=== PATIENT | female | born 1940 | race American Indian/Alaskan Native ===

== ENCOUNTER 2016-06-05 23:05 | Emergency (ER) | payer MEDICARE | END 2016-06-05 23:30 | disposition left against medical advice (07) | LOC: ED 23:05 | DX: R03.0 Elevated blood-pressure reading, without diagnosis of hypertension (principal); Z53.21 Procedure and treatment not carried out due to patient leaving prior to being seen by health care provider ==

== ENCOUNTER 2016-07-06 11:47 | Observation (INO) | payer MEDICARE ==
[2016-07-06 12:43] LABS: Basophils % (Auto) 0.6 % (0.0-1.8); Eosinophils % (Auto) 2.7 % (0.0-4.3); Hematocrit 31.5 % (30.3-42.9); Hemoglobin 10.1 gm/dl (10.1-14.3); Mean Corpuscular HGB Conc 32 % (30-34); Mean Corpuscular Hemoglobin 30 pg (28-32); Mean Corpuscular Volume 92 fl (79-97); Platelet Count 146 K/mm3 (140-440); Red Blood Count 3.43 M/mm3 (3.65-5.03); Red Cell Distribution Width 15.3 % (13.2-15.2); White Blood Count 4.5 K/mm3 (4.5-11.0)
[2016-07-06 12:58] LABS: Creatine Kinase MB 1.7 ng/mL (0.0-4.0)
[2016-07-06 12:59] LABS: Magnesium 1.9 mg/dL (1.7-2.3)
[2016-07-06 13:08] LABS: BUN/Creatinine Ratio 21.11; Blood Urea Nitrogen 19 mg/dL (7-17); Calcium 9.3 mg/dL (8.4-10.2); Carbon Dioxide 26 mmol/L (22-30); Glucose 124 mg/dL (65-100)
[2016-07-06 13:09] LABS: Anion Gap 18 mmol/L; Chloride 102.5 mmol/L (98-107); Potassium 4.5 mmol/L (3.6-5.0); Sodium 142 mmol/L (137-145)
--- NOTE | 2016-07-06 13:27 | Emergency Department Report ---
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 Patient describes associated lightheadedness with no reported pain, nausea, vomiting, diaphoresis, melena, hematochezia, or diarrhea. After reviewing medications with family it appears that patient took a double dose of her Cardura 4 mg since she had 2 different looking Cardura pills in 2 separate bottles. Patient was also started on Zanaflex 4 mg for her ongoing back pain in which she took the first dose this morning. Patient complains generalized weakness and feeling hungry. - Related Data Home Medications Medication Instructions Recorded Confirmed Last Taken Atenolol [Tenormin] 2 tab PO DAILY 05/17/15 02/22/16 02/22/16 Losartan/Hydrochlorothiazide 1 each PO DAILY 02/22/16 02/22/16 02/22/16 [Losartan-Hctz 100-25 mg Tab] Previous Rx's Medication Instructions Recorded Last Taken Type Aspirin EC [Aspirin Enteric Coated 81 mg PO QDAY #30 tablet. 05/29/15 Rx TAB] amLODIPine [Norvasc] 5 mg PO DAILY #30 tab 02/22/16 Unknown Rx Allergies Allergy/AdvReac Type Severity Reaction Status Date / Time No Known Allergies Allergy Verified 02/08/16 12:08 ED Review of Systems ROS: Stated complaint: GENERAL WEAKNESS Other details as noted in HPI Comment: All other systems reviewed and negative Other: Constitutional: No fevers chills Eyes: No eye pain visual changes ENT: No ear pain or throat pain Neck: Denies pain Respiratory: Denies cough wheezing shortness of breath Cardiovascular: Denies chest pain, palpitations GI: Denies abdominal pain, nausea, vomiting, diarrhea : Denies dysuria Musculoskeletal: Denies back pain Skin: Denies rash, lesions, erythema Neurologic: Denies headache, numbness Psychiatric: Denies suicidal ideation, hallucinations ED Past Medical Hx - Past Medical History Previous Medical History?: Yes Hx Hypertension: Yes Hx CVA: Yes (APR 2015) Hx Heart Attack/AMI: No (father of heart attack 56 y/o) Hx Diabetes: Yes (NIDDM) Hx HIV: No - Surgical History Past Surgical History?: Yes Additional Surgical History: tonsilectomy - Social History Smoking Status: Never Smoker Substance Use Type: Alcohol - Medications Home Medications: Home Medications Medication Instructions Recorded Confirmed Last Taken Type Atenolol [Tenormin] 2 tab PO DAILY 05/17/15 02/22/16 02/22/16 History Aspirin EC [Aspirin Enteric Coated 81 mg PO QDAY #30 tablet. 05/29/1502/22/16 Rx TAB] Losartan/Hydrochlorothiazide 1 each PO DAILY 02/22/16 02/22/16 02/22/16 History [Losartan-Hctz 100-25 mg Tab] amLODIPine [Norvasc] 5 mg PO DAILY #30 tab 02/22/16 Unknown Rx ED Physical Exam - General Limitations: No Limitations - Other Other exam information: General: No limitations, patient is alert in no acute distress Head exam: Atraumatic, normocephalic Eyes exam: Normal appearance, pupils equal reactive to light, extraocular movements intact ENT: Moist mucous membrane, normal oropharynx Neck exam: Normal inspection, full range of motion, no meningismus nontender Respiratory exam: Clear to auscultation bilateral, no wheezes, rales, crackles Cardiovascular: Normal rate and rhythm, normal heart sounds Abdomen: Soft, nondistended, and nontender, with normal bowel sounds, no rebound, or guarding Extremity: Full range of motion, left ankle edema which is chronic as per patient with history of surgery to the ankle Back: Normal Inspection, full range of motion, no tenderness Neurologic: Alert, oriented x3, cranial nerves intact, no motor or sensory deficit, xjldtz-mzhy-cfohsu function intact Psychiatric: normal affect, normal mood Skin: Warm, dry, intact - Assessment Assessment Interval: Baseline - Level of Consciousness 1a. Level of Consciousness: alert - LOC Questions 1b. LOC Questions: answers correctly - LOC Command 1c. LOC Commands: performs tasks correctly - Best Gaze 2. Best Gaze: normal - Visual 3. Visual: no visual loss - Facial Palsy 4. Facial Palsy: normal symmetrical movement - Motor Arm 5b. Motor Arm Right: no drift 5a. Motor Arm Left: no drift - Motor Leg 6a. Motor Leg Left: no drift 6b. Motor Leg Right: no drift - Limb Ataxia 7. Limb Ataxia: absent - Sensory 8. Sensory: normal - Best Language 9. Best Language: no aphasia - Dysarthria 10. Dysarthria: normal - Extinction and Inattention 11. Extinction/Inattention: no abnormality - Scoring Total Score: 0 Stroke Severity: No Stroke Symptoms ED Course Vital Signs 07/06/16 12:08 Temperature 97.9 F Pulse Rate 50 L Blood Pressure 155/79 O2 Sat by Pulse 99 Oximetry - Reevaluation(s) Reevaluation #1: 07/06/16 14:00 pt being monitored. steady gait in ED. ED Medical Decision Making - Lab Data Result diagrams: 07/06/16 12:24 07/06/16 12:24 Lab Results 07/06/16 07/06/16 07/06/16 Range/Units 12:24 12:24 12:35 WBC 4.5 (4.5-11.0) K/mm3 RBC 3.43 L (3.65-5.03) M/mm3 Hgb 10.1 (10.1-14.3) gm/dl Hct 31.5 (30.3-42.9) % MCV 92 (79-97) fl MCH 30 (28-32) pg MCHC 32 (30-34) % RDW 15.3 H (13.2-15.2) % Plt Count 146 (140-440) K/mm3 Lymph % (Auto) 25.3 (13.4-35.0) % [place] % (Auto) 10.4 H (0.0-7.3) % Eos % (Auto) 2.7 (0.0-4.3) % Baso % (Auto) 0.6 (0.0-1.8) % Lymph # 1.1 L (1.2-5.4) K/mm3 [place]oup # 0.5 (0.0-0.8) K/mm3 Eos # 0.1 (0.0-0.4) K/mm3 Baso # 0.0 (0.0-0.1) K/mm3 Seg Neutrophils % 61.0 (40.0-70.0) % Seg Neutrophils # 2.7 (1.8-7.7) K/mm3 Sodium 142 (137-145) mmol/L Potassium 4.5 (3.6-5.0) mmol/L Chloride 102.5 (98-107) mmol/L Carbon Dioxide 26 (22-30) mmol/L Anion Gap 18 mmol/L BUN 19 H (7-17) mg/dL Creatinine 0.9 (0.7-1.2) mg/dL Estimated GFR > 60 ml/min BUN/Creatinine Ratio 21.11 % Glucose 124 H (65-100) mg/dL Calcium 9.3 (8.4-10.2) mg/dL Magnesium 1.9 (1.7-2.3) mg/dL Total Creatine Kinase 88 (30-135) units/L CK-MB (CK-2) 1.7 (0.0-4.0) ng/mL CK-MB (CK-2) Rel Index 1.9 (0-4) Troponin T < 0.010 (0.00-0.029) ng/mL TSH (0.270-4.200) mlU/mL Free T4 (0.76-1.46) ng/dL Urine Color (Yellow) Urine Turbidity (Clear) Urine pH (5.0-7.0) Ur Specific [place] (1.003-1.030) Urine Protein (Negative) mg/dL Urine Glucose (UA) (Negative) mg/dL Urine Ketones (Negative) mg/dL Urine Blood (Negative) Urine Nitrite (Negative) Urine Bilirubin (Negative) Urine Urobilinogen (<2.0) mg/dL Ur Leukocyte Esterase (Negative) Urine WBC (Auto) (0.0-6.0) /HPF Urine RBC (Auto) (0.0-6.0) /HPF U Epithel Cells (Auto) (0-13.0) /HPF Urine Bacteria (Auto) (Negative) /HPF Hyaline Casts /LPF Urine Mucus /HPF 07/06/16 07/06/16 Range/Units 12:35 13:09 WBC (4.5-11.0) K/mm3 RBC (3.65-5.03) M/mm3 Hgb (10.1-14.3) gm/dl Hct (30.3-42.9) % MCV (79-97) fl MCH (28-32) pg MCHC (30-34) % RDW (13.2-15.2) % Plt Count (140-440) K/mm3 Lymph % (Auto) (13.4-35.0) % [place] % (Auto) (0.0-7.3) % Eos % (Auto) (0.0-4.3) % Baso % (Auto) (0.0-1.8) % Lymph # (1.2-5.4) K/mm3 [place] # (0.0-0.8) K/mm3 Eos # (0.0-0.4) K/mm3 Baso # (0.0-0.1) K/mm3 Seg Neutrophils % (40.0-70.0) % Seg Neutrophils # (1.8-7.7) K/mm3 Sodium (137-145) mmol/L Potassium (3.6-5.0) mmol/L Chloride (98-107) mmol/L Carbon Dioxide (22-30) mmol/L Anion Gap mmol/L BUN (7-17) mg/dL Creatinine (0.7-1.2) mg/dL Estimated GFR ml/min BUN/Creatinine Ratio % Glucose (65-100) mg/dL Calcium (8.4-10.2) mg/dL Magnesium (1.7-2.3) mg/dL Total Creatine Kinase (30-135) units/L CK-MB (CK-2) (0.0-4.0) ng/mL CK-MB (CK-2) Rel Index (0-4) Troponin T (0.00-0.029) ng/mL TSH 1.400 (0.270-4.200) mlU/mL Free T4 0.99 (0.76-1.46) ng/dL Urine Color Yellow (Yellow) Urine Turbidity Clear (Clear) Urine pH 7.0 (5.0-7.0) Ur Specific [place] 1.013 (1.003-1.030) Urine Protein <15 mg/dl (Negative) mg/dL Urine Glucose (UA) Neg (Negative) mg/dL Urine Ketones Neg (Negative) mg/dL Urine Blood Neg (Negative) Urine Nitrite Neg (Negative) Urine Bilirubin Neg (Negative) Urine Urobilinogen < 2.0 (<2.0) mg/dL Ur Leukocyte Esterase Sm (Negative) Urine WBC (Auto) 4.0 (0.0-6.0) /HPF Urine RBC (Auto) 3.0 (0.0-6.0) /HPF U Epithel Cells (Auto) < 1.0 (0-13.0) /HPF Urine Bacteria (Auto) 1+ (Negative) /HPF Hyaline Casts 2 /LPF Urine Mucus Few /HPF - EKG Data -: EKG Interpreted by Me (sinus bradycardia rate 51 first degree AV block) - EKG Data When compared to previous EKG there are: changes noted (compared to 12/30/15 New 1st av block today) - Medical Decision Making Plans admit patient to the hospital for further monitoring overnight. Symptoms likely secondary to incorrect dosing of her Cardura and new Zanaflex prescription. Initial ED workup otherwise unremarkable with exception of new 1st av block (AL interval 22ms). Patient does have bradycardia and does take a beta diogo. No signs of hypotension in the ED - Differential Diagnosis infection, UTI, dehydration, polypharmacy, symptomatic bradycardia Critical Care Time: No Critical care attestation.: If time is entered above; I have spent that time in minutes in the direct care of this critically ill patient, excluding procedure time. ED Disposition Clinical Impression: Generalized weakness, Bradycardia, Adverse effects of medication, 1St degree AV block Disposition: OP ADMITTED IP TO THIS HOSP Is pt being admited?: Yes Condition: Stable Time of Disposition: 13:38 (Dr Roger goff/hosp)
[2016-07-06 13:43] LABS: Bacteria,Urine 1+ /HPF (Negative); Bilirubin,Urine NEG (Negative); Blood,Urine NEG (Negative); Ketones,Urine NEG (Negative); Leukocyte Esterase,Urine SM (Negative); Mucus,Urine FEW /HPF; Nitrite,Urine NEG (Negative); Protein,Urine <15 mg/dL mg/dL (Negative); Urobilinogen,Urine < 2.0 mg/dL (<2.0)
[2016-07-06] MEDS ORDERED: DULCOLAX PR PRN (15:09)
[2016-07-06] MEDS ORDERED: TYLENOL PO PRN (15:09)
[2016-07-06] MEDS ORDERED: D50W (25GM) IV PRN (15:09)
[2016-07-06] MEDS ORDERED: ZOFRAN IV PRN (15:09)
[2016-07-06] MEDS ORDERED: MILK OF MAGNESIA PO PRN (15:09)
--- NOTE | 2016-07-06 16:13 | History and Physical Report ---
History of Present Illness Date of examination: 07/06/16 Date of admission: 07/06/16 15:09 Chief complaint: Generalized weakness History of present illness: 75-year-old female with a past medical history of stroke in 2016 without residual deficits, ttj-[id number] diabetes, and hypertension presents to the hospital with complaints of generalized weakness that started approximately 10 AM this morning after taking a shower. Patient describes associated lightheadedness with no reported pain, nausea, vomiting, diaphoresis, melena, hematochezia, or diarrhea. After reviewing medications with family it appears that patient took a double dose of her Cardura 4 mg since she had 2 different looking Cardura pills in 2 separate bottles. Patient was also started on Zanaflex 4 mg for her ongoing back pain and apparently she took the first dose this morning. Patient complains generalized weakness since she took her medications. Family says she was unable to walk and felt very weak. He denies any chest pain palpitations syncope or falls Past History Past Medical History: diabetes, hypertension, hyperlipidemia, stroke Past Surgical History: tonsillectomy Social history: no significant social history Family history: CAD Medications and Allergies Allergies Allergy/AdvReac Type Severity Reaction Status Date / Time No Known Allergies Allergy Verified 02/08/16 12:08 Home Medications Medication Instructions Recorded Confirmed Last Taken Type Atenolol [Tenormin] 2 tab PO DAILY 05/17/15 02/22/16 02/22/16 History Aspirin EC [Aspirin Enteric Coated 81 mg PO QDAY #30 tablet. 05/29/1502/22/16 Rx TAB] Losartan/Hydrochlorothiazide 1 each PO DAILY 02/22/16 02/22/16 02/22/16 History [Losartan-Hctz 100-25 mg Tab] amLODIPine [Norvasc] 5 mg PO DAILY #30 tab 02/22/16 Unknown Rx Active Meds: Active Medications Acetaminophen (Tylenol) 650 mg PO Q4H PRN PRN Reason: Pain MILD(1-3)/Fever >100.5/PATINO Amlodipine Besylate (Norvasc) 5 mg PO DAILY VICTORINA Aspirin (Halfprin Ec) 81 mg PO QDAY VICTORINA Atenolol (Tenormin) 50 mg PO DAILY VICTORINA Bisacodyl (Dulcolax) 10 mg AR QDAY PRN PRN Reason: Constipation unrelieved by MOM Dextrose (D50w (25gm)) 50 ml IV PRN PRN PRN Reason: Hypoglycemia Heparin Sodium (Porcine) (Heparin) 5,000 unit SUB-Q Q8HR VICTORINA Insulin Aspart (Novolog) 0 units SUB-Q ACHS VICTORINA PRN Reason: Protocol Losartan Potassium (Cozaar) 50 mg PO DAILY VICTORINA Magnesium Hydroxide (Milk Of Magnesia) 30 ml PO Q4H PRN PRN Reason: Constipation Ondansetron HCl (Zofran) 4 mg IV Q8H PRN PRN Reason: N/V unrelieved by Reglan Review of Systems Constitutional: weakness, no weight loss, no weight gain, no fever, no chills, no fatigue Ears, nose, mouth and throat: no ear pain, no sore throat, no headache, no vertigo Cardiovascular: high blood pressure, no chest pain, no palpitations, no syncope , no lightheadedness, no shortness of breath Respiratory: shortness of breath, dyspnea on exertion, no cough Gastrointestinal: no abdominal pain, no nausea, no vomiting, no diarrhea, no constipation, no melena Genitourinary Female: no dysuria, no urinary frequency, no stress incontinence, no urge incontinence Menstruation: postmenopausal Rectal: no pain Musculoskeletal: low back pain, no neck pain Integumentary: no rash Neurological: no seizures, no syncope Psychiatric: no anxiety, no depression Endocrine: no excessive thirst, no polyuria, no nocturia Exam - Constitutional Vitals: Temp Pulse Resp BP Pulse Ox 97.9 F 54 L 16 156/82 99 07/06/16 12:08 07/06/16 13:45 07/06/16 13:45 07/06/16 13:45 07/06/16 13:45 General appearance: Present: no acute distress, obese - EENT Eyes: Present: PERRL, EOM intact ENT: hearing intact, clear oral mucosa, no thrush - Neck Neck: Present: supple, normal ROM. Absent: masses or JVD, carotid bruits - Respiratory Respiratory effort: normal Respiratory: bilateral: CTA - Cardiovascular Rhythm: regular Heart Sounds: Present: S1 & S2 - Extremities Extremities: No edema - Abdominal General gastrointestinal: Present: soft, non-tender. Absent: hepatomegaly, splenomegaly - Rectal Rectal Exam: deferred - Integumentary Integumentary: Present: clear, warm, dry - Musculoskeletal Musculoskeletal: strength equal bilaterally - Psychiatric Psychiatric: appropriate mood/affect, intact judgment & insight - Neurologic Neurologic: CNII-XII intact, no focal deficits Results - Labs CBC & Chem 7: 07/06/16 12:24 07/06/16 12:24 Assessment and Plan - Patient Problems (1) Generalized weakness Current Visit: Yes Status: Acute Plan to address problem: History suggestive of medication-induced weakness Had a detailed discussion with the patient and the family about the possible cause We will keep her under observation overnight and most likely may be discharged tomorrow if the weakness improves (2) Hypertension Current Visit: Yes Status: Chronic Qualifiers: Hypertension type: H Plan to address problem: Well-controlled Continue home medications (3) Bradycardia Current Visit: Yes Status: Acute Plan to address problem: EKG shows a heart rate of 51 bpm sinus bradycardia with first-degree AV block Most likely medication related bradycardia the patient is on beta blockers (4) Diabetes mellitus Current Visit: No Status: Chronic Qualifiers: Diabetes mellitus type: type 2 Diabetes mellitus complication status: D Diabetes mellitus complication detail: D Diabetic retinopathy severity: D Proliferative retinopathy type: P Diabetes mellitus macular edema: D Diabetes mellitus chcf insulin use: without chcf use Laterality: L Chronic kidney disease stage: C Plan to address problem: Monitor blood sugars with sliding scale coverage for now (5) Dyslipidemia Current Visit: No Status: Chronic Plan to address problem: Continue statin
[2016-07-06] MEDS: NOVOLOG SUB-Q SCH ×2 (20:00→22:21)
[2016-07-06] MEDS: HEPARIN SUB-Q SCH (22:27)
[2016-07-07] MEDS: HEPARIN SUB-Q SCH ×2 (05:33→14:45)
[2016-07-07] MEDS: NOVOLOG SUB-Q SCH ×2 (09:01→12:16)
[2016-07-07 09:52] VITALS: BP 177/79
[2016-07-07] MEDS ORDERED: TENORMIN PO SCH (10:00)
[2016-07-07] MEDS ORDERED: COZAAR PO SCH (10:00)
[2016-07-07] MEDS ORDERED: HALFPRIN EC PO SCH (10:00)
[2016-07-07] MEDS ORDERED: NORVASC PO SCH (10:00)
[2016-07-07] MEDS ORDERED: FLUARIX QUAD 2016-2017(36 MOS+) IM ONE (12:00)
--- NOTE | 2016-07-07 14:59 | Discharge Summary ---
Providers - Providers Date of Admission: 07/06/16 15:09 Date of discharge: 07/07/16 Attending physician: TAMI GARCIA Primary care physician: [facility] Hospitalization Reason for admission: weakness Condition: Stable Hospital course: Patient is a 75 years old -[place] female with hypertension, diabetes and stroke in 2016 with no residual deficits, who was brought to the hospital for acute generalized weakness and lightheadedness. Medications have been reviewed with family and noted that she took Cardura twice along with beta diogo; one of them side effects of Cardura is hypotension she also had transient bradycardia which can explain her generalized weakness and lightheadedness. She was admitted and observed in the hospital overnight; her symptoms resolved, she was feeling well in the morning and is discharged in stable condition. Family advised to help her taking her medications. Discharge diagnosis: 1. Generalized weakness 2. Transient bradycardia 3. Hypertension 4. Diabetes 5. Hyperlipidemia 6. Prior stroke with no residual deficits Disposition: DISCHARGED TO HOME OR SELFCARE Time spent for discharge: 35 min Core Measure Documentation - Palliative Care Palliative Care/ Comfort Measures: Not Applicable - Core Measures Any of the following diagnoses?: none Exam - Physical Exam Narrative exam: Patient seen and examined: - Constitutional Vitals: Temp Pulse Resp BP Pulse Ox 97.8 F 76 18 177/79 100 07/07/16 09:49 07/07/16 09:49 07/07/16 09:49 07/07/16 09:49 07/07/16 09:49 General appearance: Present: no acute distress, well-nourished - EENT Eyes: Present: PERRL, EOM intact. Absent: scleral icterus, conjunctival injection - Neck Neck: Present: supple, normal ROM. Absent: masses or JVD - Respiratory Respiratory effort: normal Respiratory: bilateral: CTA, negative: rhonchi, wheezing - Cardiovascular Rhythm: regular Heart Sounds: Present: S1 & S2. Absent: systolic murmur - Extremities Extremities: no ischemia - Abdominal General gastrointestinal: Present: soft, non-tender, non-distended, normal bowel sounds - Musculoskeletal Musculoskeletal: strength equal bilaterally - Psychiatric Psychiatric: cooperative - Neurologic Neurologic: CNII-XII intact, no focal deficits Plan Activity: advance as tolerated Diet: low cholesterol, low salt Follow up with: PRIMARY CARE, [Primary Care Provider] - 7 Days
== END 2016-07-07 16:10 | disposition home or self-care (01) ==
LOC: ED 11:47 → CC1 15:09 → CC2 17:39
PROVIDERS: ADMIT Internal Medicine; ATTEND Internal Medicine
DX: R53.1 Weakness (principal); R00.1 Bradycardia, unspecified; E78.5 Hyperlipidemia, unspecified; E11.22 Type 2 diabetes mellitus with diabetic chronic kidney disease; I12.9 Hypertensive chronic kidney disease with stage 1 through stage 4 chronic kidney disease, or unspecified chronic kidney disease; E11.3519 Type 2 diabetes mellitus with proliferative diabetic retinopathy with macular edema, unspecified eye; N18.9 Chronic kidney disease, unspecified; Z86.73 Personal history of transient ischemic attack (TIA), and cerebral infarction without residual deficits; Z98.890 Other specified postprocedural states; Z82.49 Family history of ischemic heart disease and other diseases of the circulatory system; Z23 Encounter for immunization
CPT/HCPCS: 36415; 80048; 81001; 82550; 82553; 82962; 83735; 84439; 84443; 84484; 85025; 90686; 93005; 93010; 96372; 99285; G0008; G0378; J1644; 90471